=== PATIENT | male | born 1960 | race Caucasian/White ===

== ENCOUNTER → 2018-02-15 | Outpatient (CLI) | payer BC ==
--- NOTE | 2018-02-15 12:24 | MRI ---
MRI left knee without contrast INDICATION: Knee pain initial encounter twisting injury felt pop feels unstable TECHNIQUE: Noncontrast MR imaging left knee standard protocol FINDINGS: Large joint effusion with diffuse synovitis likely reactive. Extensor tendons are intact. There is cystic change in the anterior midline tibial plateau likely intraosseous ganglion/degenerative cyst. Cruciate ligaments are intact. There is a diffusely macerated tear of the medial meniscus with diffuse horizontal cleavage with maceration posterior horn and adjacent grade 4 chondral fissuring posterior aspect medial femoral condyle with subchondral edema. There is also subchondral stress reaction with edema in the medial tibial plateau. No major lateral meniscal tear Mild lateral patellar tracking and tilt with diffuse up to grade 4 chondrosis in the lateral patellar facet and lower grade chondrosis in the remainder of the patellofemoral compartment. Subchondral edema is noted with chondral delamination axial series 301 image 30 lateral facet patella. IMPRESSION: Large joint effusion with diffuse synovitis/debris Macerated medial meniscal tear most severe in the body and posterior horn with adjacent subchondral edema and grade 4 chondrosis in the medial tibiofemoral compartment No cruciate ligament disruption Intraosseous ganglion/degenerative cyst anterior midline tibial plateau Minimal degenerative change lateral meniscus Up to grade 4 chondrosis in the patella most pronounced in the lateral facet inferiorly with subchondral edema and more generalized lower grade chondrosis in the remainder of the patellofemoral compartment. Partial medial meniscal extrusion along the medial jointline on the coronal images without disruption of the collateral ligaments. Electronically signed by: Jose Pierson MD 02/15/2018 12:23 PM CDT
== END ==
LOC: MRI 10:49
PROVIDERS: ATTEND Family Medicine
DX: S83.242A Other tear of medial meniscus, current injury, left knee, initial encounter (principal); M94.8X6 Other specified disorders of cartilage, lower leg

== ENCOUNTER → 2018-02-26 | Outpatient (CLI) | payer BC | LOC: LAB.O 09:44 | PROVIDERS: ATTEND Orthopaedic Surgery | DX: Z01.818 Encounter for other preprocedural examination (principal) ==

== ENCOUNTER 2018-03-13 05:48 | Day surgery (SDC) | payer BC ==
--- NOTE | 2018-03-12 10:50 | HP ---
CHIEF COMPLAINT: Left knee pain. HISTORY OF PRESENT ILLNESS: Mr. Christine is a 58-year-old male with a history of twisting injury. He has been having difficulty with extension of the knee with occasional clicking. Because of his ongoing symptoms, he has requested operative intervention. After discussing the risks, benefits and alternatives to that, the patient has given informed consent. PAST SURGICAL HISTORY: 1. Cardiac bypass. MEDICATIONS: 1. Repatha. 2. Citalopram. 3. Metoprolol. 4. Ecotrin. 5. Fish oil. ALLERGIES: NO KNOWN DRUG ALLERGIES. CODE STATUS: Full code. IMMUNIZATIONS: Up to date. FAMILY HISTORY: None pertinent to today's complaint. SOCIAL HISTORY: The patient does not use any illicit drugs. He does smoke and drinks about a 6-pack a day. REVIEW OF SYSTEMS: Negative except as indicated in the History of Present Illness. PHYSICAL EXAMINATION: VITAL SIGNS: Blood pressure 141/89. Pulse 82. Height 6'. Weight 225 pounds. MENTAL STATUS: The patient is awake, alert, and is able to give a good history and participate in the physical. The patient is oriented to person, place and time. SKIN: Normal tone and turgor. MUSCULOSKELETAL: He is tender along the medial and posteromedial aspects of the joint-line. He has difficulty with full extension but is able to fully extend today. Flexion is to about 120 degrees. He has crepitus with flexion and extension . He has no varus/valgus or anterior/posterior laxity. There is no effusion today. IMAGING: X-rays show some arthritic changes. MRI shows tearing of the medial meniscus with some bony edema. ASSESSMENT: 1. Meniscus tear. 2. Arthritis. PLAN: At this point, we have talked about his options. Because of his MRI findings and the acute nature of these symptoms, I think a knee arthroscopy is warranted. We have discussed the risks, benefits, and alternatives to that and the patient has given informed consent. #[id number] [facility]
[2018-03-13] MEDS ORDERED: SODIUM CHL 0.9% 100ML MINI-BAG 100 ML IVPB ONE (07:59)
[2018-03-13] MEDS ORDERED: ceFAZolin SODIUM 1 GM VIAL ONE ×2 (07:59→09:06)
[2018-03-13] MEDS: LACTATED RINGERS 1,000 ML ONE ×2 (08:20→12:12)
[2018-03-13] MEDS ORDERED: BUPIVACAINE 0.25% W/EPI 50 ML VIAL INJ ONE (09:06)
[2018-03-13] MEDS ORDERED: raNITIdine HCL INJ 25 MG/ML VIAL IV ONE (10:00)
[2018-03-13] MEDS ORDERED: ePHEDrine SULF 50 MG/ML IV ONE (10:00)
[2018-03-13] MEDS ORDERED: DEXAMETHASONE INJ 10 MG/ML VIAL IV ONE (10:00)
[2018-03-13] MEDS ORDERED: PROPOFOL 200 MG/20 ML VIAL IV ONE (10:00)
[2018-03-13] MEDS ORDERED: SODIUM CHLORIDE 0.9% 50 ML VIAL INJ ONE (10:00)
[2018-03-13] MEDS ORDERED: LIDOCAINE 1% 10 ML VIAL INJ ONE (10:00)
[2018-03-13] MEDS ORDERED: METOCLOPRAMIDE HCL INJ 10 MG/2 ML VIAL IV ONE (10:00)
[2018-03-13] MEDS ORDERED: PHENYLEPHRINE INJ 1ML 10 MG/ML VIAL IV ONE (10:00)
[2018-03-13] MEDS ORDERED: MIDAZOLAM INJ 2 MG/2 ML VIAL ONE (10:11)
[2018-03-13] MEDS ORDERED: MORPHINE SULFATE INJ 10 MG/ML VIAL ONE (10:11)
[2018-03-13] MEDS ORDERED: ROCURONIUM BROMIDE 10 MG/ML VIAL ONE (10:50)
[2018-03-13] MEDS: ceFAZolin SODIUM 1 GM VIAL ONE ×2 (11:02→11:15)
[2018-03-13] MEDS: VANCOMYCIN HCL INJ 1,000 MG VIAL IVPB ONE ×2 (11:07→11:15)
[2018-03-13] MEDS ORDERED: ELECTROLYTE-A 1,000 ML IVS ONE (11:15)
[2018-03-13] MEDS ORDERED: SUGAMMADEX SODIUM 200 MG/2 ML VIAL IV ONE (11:15)
[2018-03-13] MEDS ORDERED: LEVALBUTEROL NEBS 1.25 MG/3 ML VIAL NEB ONE (11:36)
[2018-03-13 14:00] VITALS: BP 124/80; TEMP 97; O2SAT 99
--- NOTE | 2018-03-14 08:35 | OP ---
DATE OF PROCEDURE: 03/13/18 PREOPERATIVE DIAGNOSIS: 1. Meniscus tear. 2. Knee pain. POSTOPERATIVE DIAGNOSIS: 1. Medial meniscus tear. 2. Full thickness cartilaginous loss in the knee. PROCEDURE: 1. Partial meniscectomy. 2. Chondroplasty/debridement. SURGEON: Campos Ventura MD. RELOCATION COUNSELOR: Luis Shepherd CST, -C. ANESTHESIA: General anesthesia. COMPLICATIONS: None. FINDINGS: 1. Full thickness cartilaginous loss on the medial femoral condyle. 2. Large flap tear of cartilage on the medial femoral condyle. 3. Flap tear of the medial meniscus in the mid-body extending to the posterior body. 4. Normal anterior cruciate ligament, normal posterior cruciate ligament. 5. Large flap tear of cartilage on the lateral femoral condyle. 6. Grade 3 cartilaginous changes in the lateral compartment. 7. Normal lateral gutter. 8. Normal suprapatellar pouch. 9. Full thickness cartilaginous loss in the patellofemoral joint. 10. Normal medial gutter. INDICATION: Mr. Christine has a history of knee pain with associated occasional mechanical symptoms. Because of his ongoing knee pain and failure of conservative measures, he has requested operative intervention. After discussing the risks, benefits and alternatives to that, the patient has given informed consent for that. PROCEDURE: The patient was brought to the Operating Room and placed in supine position. General anesthesia was induced and the patient's leg was sterilely prepped and draped. Following prepping and draping, standard anteromedial and anterolateral portals were established. Diagnostic arthroscopy was carried out with the above findings. Following that, attention was focused on the medial compartment. Using a 3.5 mm full radius shaver, the tear in the medial meniscus was debrided and subsequently thoroughly probed. It was stable with no remaining flap tear. The cartilaginous surface on the medial femoral condyle was debrided to a stable base. Attention was focused on the lateral compartment where the lateral femoral condylar cartilage was debrided and the flap tear noted above was removed. An accessory superolateral portal was established and the patellofemoral joint was debrided. The knee was then very thoroughly irrigated and drained. Following draining of the knee, the wounds were closed with Nylon suture. Sterile dressings were placed. The patient was awoken from anesthesia and taken to Recovery. POSTOPERATIVE PLAN: The patient will be partial weightbearing until followup with us in two days. #[id number] MTDD
== END 2018-03-13 12:45 | disposition home or self-care (01) ==
LOC: AMB 05:48
PROVIDERS: ATTEND Orthopaedic Surgery
DX: M23.204 Derangement of unspecified medial meniscus due to old tear or injury, left knee (principal); I10 Essential (primary) hypertension; I25.10 Atherosclerotic heart disease of native coronary artery without angina pectoris; F17.200 Nicotine dependence, unspecified, uncomplicated; I25.2 Old myocardial infarction; Z95.1 Presence of aortocoronary bypass graft; Z79.899 Other long term (current) drug therapy
CPT/HCPCS: 01400; 29881; A4216; J0690; J1100; J2250; J2270; J2765; J2780; J3370; J3490; J7050; J7120; J7614

== ENCOUNTER → 2018-10-16 | Outpatient (CLI) | payer BC ==
--- NOTE | 2018-10-16 17:45 | CT ---
EXAM DESCRIPTION: Head: Computed Tomography. CLINICAL HISTORY: ALTERED MENTAL STATE COMPARISON: CT scan of the head without contrast 01/23/2008. Duplex ultrasound evaluation of the carotid and vertebral arteries on this visit. TECHNIQUE: Non-helical axial scans through the skull and brain, at 2.5 x 20 mm intervals, non-contrast. Coronal and sagittal 2.0 mm reconstructions. Total Exam DLP: 752.48 mGy-cm. This exam was performed according to our departmental dose-optimization program which includes automated exposure control, adjustment of the mA and/or kV according to patient size and/or use of iterative reconstruction technique; to reduce radiation dose to as low as reasonably achievable (ALARA). FINDINGS: No hemorrhage, no mass-effect, and no midline shift. Normal cruz-white matter differentiation. No abnormal radiodense material in the brain parenchyma. Vascular calcifications anterior and posterior; physiologic calcifications in the pineal gland and choroid plexus. No effacement or displacement of the ventricles, CSF spaces, or subdural spaces. Increased size of the cortical sulci in the bilateral frontal lobes compared to the prior study. No extra axial fluid collection or hemorrhage. No gross abnormalities of the bony calvarium. Included paranasal sinuses and left mastoid air cells are unremarkable. Intimal soft tissue density in the inferior right mastoid air cells. IMPRESSION: 1. No hemorrhage, no mass effect, no midline shift. No extra-axial hemorrhage. Subtle increase in cortical atrophy in the bilateral frontal lobes since the prior study. 2. CT scans are insensitive for detecting causes for cognitive and subtle mental status changes. If symptoms persist, consider NON-EMERGENT MRI scan of the brain with diffusion imaging. Also gadolinium IV contrast may be additionally helpful. Electronically signed by: Luis Gudino MD 10/16/2018 5:41 PM [facility]
--- NOTE | 2018-10-16 17:51 | US ---
EXAM DESCRIPTION: Carotid Duplex: ULTRASOUND. CLINICAL HISTORY: 58 years Male ALTERED MENTAL STATUS COMPARISON: CT scan of the head without IV contrast on this visit. TECHNIQUE: Transcutaneous scanning utilizing cruz-scale and Doppler modes to evaluate the bilateral carotid systems and vertebral arteries. Percentage of diameter of stenosis or no stenosis recorded will be based upon NASCET criteria. FINDINGS: Peak systolic/end diastolic (CM-Sec) CCA Right 83/22 Left 68/15. ICA Right proximal 134/35, mid 95/27. Left proximal 111/37, Distal 87/24. Vertebral Right 58/16 Left 61/19. ECA (PS Only) Right 162 left 142. ICA/CCA peak systolic ratio: Right 1.6 Left 1.6 ICA/CCA end diastolic ratio: Right 1.6 Left 2.5 Vertebral arteries: Antegrade flow. Comments: atherosclerotic calcification right CCA bulb. Area stenosis is 34% and diameter stenosis is the same. Spectral broadening and minimal color turbulent flow in the proximal right ICA. Atherosclerotic calcification in the bulb of the left CCA. Area stenosis is 53% and diameter stenosis 46%. Atherosclerotic calcification in the proximal left ICA. Area stenosis is 68% and diameter stenosis 49%. Color turbulent flow and spectral broadening in the proximal left ICA. IMPRESSION: 1. Doppler evaluation of the bilateral carotid systems and vertebral arteries shows no hemodynamically significant stenoses. However, stenosis in the proximal left ICA is 50-60% 2. Significant amount plaque seen in the carotid arteries bilaterally. Bilateral vertebral arteries showed antegrade-cephalad flow. Electronically signed by: Luis Gudino MD 10/16/2018 5:48 PM [facility]
== END ==
LOC: US 07:58
PROVIDERS: ATTEND Family Medicine
DX: R41.82 Altered mental status, unspecified (principal); I65.23 Occlusion and stenosis of bilateral carotid arteries

== ENCOUNTER → 2019-06-24 | Outpatient (CLI) | payer BC ==
--- NOTE | 2019-06-24 12:30 | RAD ---
EXAM DESCRIPTION: Pelvis CLINICAL HISTORY: 59 years Male, PAIN IN RIGHT HIP COMPARISON: None. TECHNIQUE: AP radiograph of the pelvis was performed. FINDINGS: The pelvic ring appears grossly intact on this single AP radiograph. No acute fracture or dislocation. Bilateral sacroiliac joints appear normal. Severe right hip osteoarthritis with [id number] appearance. Moderate to severe left hip osteoarthritis. The visualized lumbo-sacral spine demonstrates mild degenerative changes. IMPRESSION: Single AP radiograph of the pelvis demonstrates grossly intact pelvic ring. Severe right and moderate to severe left hip osteoarthritis. Electronically signed by: Dulce Nguyen MD 06/24/2019 12:29 PM [facility]
== END ==
LOC: RAD 10:55
PROVIDERS: ATTEND Orthopaedic Surgery
DX: M16.0 Bilateral primary osteoarthritis of hip (principal)

== ENCOUNTER → 2019-07-08 | Outpatient (CLI) | payer BC | END | disposition home or self-care (01) | LOC: LAB.O 09:50 | PROVIDERS: ATTEND Orthopaedic Surgery | DX: Z11.2 Encounter for screening for other bacterial diseases (principal) ==

== ENCOUNTER 2019-08-07 05:41 | Inpatient (IN) | payer BC ==
[2019-08-07] MEDS ORDERED: LACTATED RINGERS 1,000 ML ONE ×2 (05:43→10:56)
[2019-08-07] MEDS ORDERED: TRANEXAMIC ACID 1,000 MG/10 ML VIAL ONE ×2 (05:43→05:54)
[2019-08-07] MEDS ORDERED: VANCOMYCIN HCL INJ 1,000 MG VIAL IVPB ONE ×3 (05:44→19:40)
[2019-08-07] MEDS ORDERED: ceFAZolin SODIUM 1 GM VIAL ONE ×3 (05:44→19:41)
[2019-08-07] MEDS ORDERED: SODIUM CHLORIDE 0.9% 250ML 250 ML ONE ×3 (05:45→19:40)
[2019-08-07] MEDS ORDERED: SODIUM CHL 0.9% 100ML MINI-BAG 100 ML IVPB ONE (05:45)
[2019-08-07] MEDS ORDERED: SODIUM CHLORIDE 0.9% 100ML 100 ML IVPB ONE (05:55)
[2019-08-07] MEDS ORDERED: KETAMINE HCL 100 MG/ML VIAL ONE (06:29)
[2019-08-07] MEDS ORDERED: HYDROmorphone HCL INJ 2 MG/ML VIAL ONE (06:29)
[2019-08-07] MEDS ORDERED: ROCURONIUM BROMIDE 10 MG/ML VIAL ONE ×2 (06:30→08:12)
[2019-08-07] MEDS ORDERED: BUPIVACAINE 0.5% 30 ML VIAL INJ ONE (06:30)
[2019-08-07] MEDS ORDERED: MIDAZOLAM INJ 5 MG/5 ML VIAL ONE (06:30)
[2019-08-07] MEDS ORDERED: BUPIVACAINE LIPOSOME 13.3 MG/ML VIAL INJ ONE (06:31)
[2019-08-07] MEDS: ceFAZolin SODIUM 1 GM VIAL ONE ×3 (07:50→09:06)
[2019-08-07] MEDS: VANCOMYCIN HCL INJ 1,000 MG VIAL IVPB ONE ×2 (07:59→09:06)
[2019-08-07] MEDS ORDERED: SUGAMMADEX SODIUM 200 MG/2 ML VIAL IV ONE (08:42)
[2019-08-07] MEDS ORDERED: ELECTROLYTE-A 1,000 ML IVS ONE (08:42)
[2019-08-07] MEDS ORDERED: ALUMINUM & MAGNESIUM HYDROXIDE 30 ML UD PO PRN (09:50)
[2019-08-07] MEDS ORDERED: MAGNESIUM HYDROXIDE 30 ML UD PO PRN (09:50)
[2019-08-07] MEDS ORDERED: HYDROcodone 5MG/APAP 325MG 1 EA TAB PO PRN (09:50)
[2019-08-07] MEDS ORDERED: ACETAMINOPHEN 325 MG TAB PO PRN (09:50)
[2019-08-07] MEDS ORDERED: ZOLPIDEM TARTRATE 5 MG TAB PO PRN (09:50)
[2019-08-07] MEDS ORDERED: MORPHINE SULFATE INJ 10 MG/ML VIAL IM PRN (09:50)
[2019-08-07] MEDS ORDERED: DEX 5% W/NACL 0.45% 1000ML 1,000 ML IVS PRN (09:50)
[2019-08-07] MEDS ORDERED: MORPHINE SULFATE INJ 10 MG/ML VIAL IV PRN (09:50)
[2019-08-07] MEDS ORDERED: NALOXONE HCL INJ 0.4 MG/ML VIAL IV PRN (09:50)
[2019-08-07] MEDS ORDERED: ACETAMINOPHEN 500 MG TAB PO PRN (09:50)
[2019-08-07] MEDS ORDERED: CYCLOBENZAPRINE HCL 10 MG TAB PO PRN (09:50)
[2019-08-07] MEDS ORDERED: BISACODYL SUPPOSITORY 10 MG PR PRN (09:50)
[2019-08-07] MEDS ORDERED: ONDANSETRON INJ 4 MG/2 ML VIAL IV PRN (09:50)
[2019-08-07] MEDS ORDERED: TEMAZEPAM 15 MG CAP PO PRN (09:50)
[2019-08-07] MEDS ORDERED: TRANEXAMIC ACID INJ 1,000 MG in SODIUM CHLORIDE 0.9% 100ML 100 ML IVPB ONE (09:50)
[2019-08-07] MEDS ORDERED: PROMETHAZINE HCL INJ 25 MG in SODIUM CHLORIDE 0.9% 50ML 50 ML IVPB PRN (09:50)
[2019-08-07] MEDS ORDERED: BENZOCAINE-MENTH LOZ (CEPACOL) 1 EA LOZ MT PRN (09:50)
[2019-08-07] MEDS ORDERED: SODIUM CHLORIDE 0.9% (FLUSH) 10 ML SYG IV PRN (09:50)
[2019-08-07] MEDS ORDERED: PROMETHAZINE HCL INJ 12.5 MG in SODIUM CHLORIDE 0.9% 50ML 50 ML IVPB PRN (09:50)
[2019-08-07] MEDS ORDERED: PHENYLEPHRINE INJ 1ML 10 MG/ML VIAL IV ONE (10:00)
[2019-08-07] MEDS ORDERED: LIDOCAINE 1% 10 ML VIAL INJ ONE (10:00)
[2019-08-07] MEDS ORDERED: MORPHINE PCA 1 MG/ML 100 ML BAG IVPB SCH (10:00)
[2019-08-07] MEDS ORDERED: IV SET AND CAP CHANGE INJ INJ SCH (10:00)
[2019-08-07] MEDS ORDERED: PROPOFOL 200 MG/20 ML VIAL IV ONE (10:00)
[2019-08-07] MEDS ORDERED: DEXAMETHASONE INJ 10 MG/ML VIAL IV ONE (10:00)
[2019-08-07] MEDS ORDERED: SODIUM CHLORIDE 0.9% 50 ML VIAL INJ ONE (10:00)
[2019-08-07] MEDS ORDERED: raNITIdine HCL INJ 25 MG/ML VIAL IV ONE (10:00)
[2019-08-07] MEDS ORDERED: ePHEDrine SULF 50 MG/ML IV ONE (10:00)
[2019-08-07] MEDS ORDERED: SODIUM CHLORIDE 0.9% 1000ML 500 ML IVS PRN (11:30)
[2019-08-07] MEDS ORDERED: SODIUM CHLORIDE 0.9% 500ML 500 ML ONE (11:41)
[2019-08-07] MEDS ORDERED: SODIUM CHLORIDE 0.9% 1000ML 1,000 ML IVS ONE (15:02)
[2019-08-07] MEDS ORDERED: ALBUMIN 25 GM in PREMIX BOTTLE 2 BOTTLE IVPB ONE (15:10)
[2019-08-07] MEDS ORDERED: ALBUMIN 50 ML IVPB ONE ×2 (15:14→15:16)
[2019-08-07] MEDS ORDERED: SODIUM CHL 0.9% 50ML MIN-BAG+ 50 ML IVPB ONE ×2 (17:50→19:40)
[2019-08-07] MEDS: CELECOXIB 100 MG CAP PO SCH (17:55)
[2019-08-07] MEDS: ceFAZolin SODIUM 2 GM in SODIUM CHL 0.9% 50ML MIN-BAG+ 50 ML IVPB SCH (17:55)
[2019-08-07] MEDS ORDERED: FUROSEMIDE INJ 40 MG/4 ML VIAL IV ONE (18:00)
[2019-08-07] MEDS: VANCOMYCIN HCL INJ 1,000 MG in SODIUM CHLORIDE 0.9% 250ML 250 ML IVPB SCH (18:31)
[2019-08-07] MEDS ORDERED: ENOXAPARIN SODIUM 30 MG/0.3 ML SYG SUBCU ONE (19:40)
[2019-08-07] MEDS: DOCUSATE CALCIUM 240 MG CAP PO SCH (20:37)
[2019-08-07] MEDS ORDERED: GLUCAGON INJ 1 MG VIAL SUBCU PRN (22:03)
[2019-08-07] MEDS ORDERED: DEXTROSE 50% 25 GM/50 ML SYG IV PRN (22:03)
[2019-08-07] MEDS: ENOXAPARIN SODIUM 30 MG/0.3 ML SYG SUBCU SCH (22:32)
--- NOTE | 2019-08-07 23:21 | RAD ---
EXAM DESCRIPTION: Hip,Right 2 Views (accession [id number]), Pelvis (accession [id number]) CLINICAL HISTORY: 59 years Male, post op COMPARISON: Pelvic radiograph 06/24/2019 TECHNIQUE: 2 view radiograph of the right hip and single view radiograph of the pelvis. IMPRESSION: Status post total right hip arthroplasty. Moderate arthrosis of the left hip. Imaged hardware appears normal in alignment and intact without fracture. No periprosthetic lucency is present to indicate hardware loosening. Postsurgical changes noted in the overlying soft tissues. Electronically signed by: Fuentes Zacarias MD 08/07/2019 11:20 PM [facility]
--- NOTE | 2019-08-07 23:21 | RAD ---
EXAM DESCRIPTION: Hip,Right 2 Views (accession [id number]), Pelvis (accession [id number]) CLINICAL HISTORY: 59 years Male, post op COMPARISON: Pelvic radiograph 06/24/2019 TECHNIQUE: 2 view radiograph of the right hip and single view radiograph of the pelvis. IMPRESSION: Status post total right hip arthroplasty. Moderate arthrosis of the left hip. Imaged hardware appears normal in alignment and intact without fracture. No periprosthetic lucency is present to indicate hardware loosening. Postsurgical changes noted in the overlying soft tissues. Electronically signed by: Fuentes Zacarias MD 08/07/2019 11:20 PM [facility]
[2019-08-08] MEDS: ceFAZolin SODIUM 2 GM in SODIUM CHL 0.9% 50ML MIN-BAG+ 50 ML IVPB SCH ×2 (00:14→08:58)
[2019-08-08] MEDS: VANCOMYCIN HCL INJ 1,000 MG in SODIUM CHLORIDE 0.9% 250ML 250 ML IVPB SCH (06:20)
[2019-08-08] MEDS ORDERED: INSULIN LISPRO 100 UNITS/ML PEN SUBCU SCH (07:00)
[2019-08-08] MEDS ORDERED: SODIUM CHL 0.9% 50ML MIN-BAG+ 50 ML IVPB ONE (07:19)
[2019-08-08] MEDS ORDERED: ceFAZolin SODIUM 1 GM VIAL ONE (07:20)
[2019-08-08] MEDS: CELECOXIB 100 MG CAP PO SCH ×2 (07:43→16:39)
--- NOTE | 2019-08-08 08:21 | CONS ---
SUPERVISING PHYSICIAN: John Lopez MD CHIEF COMPLAINT: Right hip pain. HISTORY OF PRESENT ILLNESS: This is a 59-year-old male patient with a history of right hip pain. He has requested Dr. Campos Ventura, orthopedic surgeon, for operative intervention. The patient was admitted today for right total hip arthroplasty that was performed by Dr. Campos Ventura, orthopedic surgeon. He had no problems intraoperatively. He was admitted to the Floor postoperatively in stable condition. PAST MEDICAL HISTORY: 1. Coronary artery disease. 2. Myocardial infarction with stent placement. 3. Hyperlipidemia. 4. Hypertension. 5. Depression. 6. History of smoking. PAST SURGICAL HISTORY: 1. Cardiac bypass graft surgery. 2. Stent placement to the right coronary artery. OUTPATIENT MEDICATIONS: 1. [place] 3 fatty acids. 2. Aspirin. 3. Citalopram. 4. Metoprolol. ALLERGIES: NO KNOWN DRUG ALLERGIES SOCIAL HISTORY: He lives in [place]. He has a past history of smoking and he continues to smoke 2 cigars daily. He drinks alcohol on a social basis. He denies any illegal drugs. REVIEW OF SYSTEMS: Negative except as per history of present illness. PHYSICAL EXAMINATION: VITAL SIGNS: Temperature 98. Heart rate 86. Blood pressure 111/73. Respiratory rate 20. O2 saturation 98% on room air. GENERAL: This is a 59-year-old male patient lying in his hospital bed. He is in no acute distress. HEENT: Normocephalic, atraumatic. Pupils are equal and reactive. Oropharynx is clear. NECK: Supple without mass. RESPIRATORY: Essentially clear to auscultation bilaterally. CHEST: There is equal rise and fall of the chest with inspiration and expiration. CARDIOVASCULAR: Regular rate and rhythm. GASTROINTESTINAL: Abdomen is soft, nondistended, nontender. Bowel sounds are positive. EXTREMITIES: No cyanosis, clubbing or edema. Bilateral pedal pulses are palpable at +2. There is a dressing to his right lateral hip that is dry and intact. NEUROLOGIC: Awake, alert and oriented times three. Cranial nerves II-XII are grossly intact. SKIN: Somewhat clammy. LABORATORY: Electrolytes are basically within normal limits. Toxicology is negative. Radiology reports are per the EMR. IMPRESSION: 1. Osteoarthritis of the right hip status post right total hip arthroplasty performed by Dr. Campos Ventura, orthopedic surgeon, postoperative day 0. 2. Elevated hemoglobin and hematocrit. 3. Hyperlipidemia. 4. Hypertension. 5. Depression. PLAN: We will continue present supportive care. His home medications have been restarted. He will start his physical therapy tomorrow for strengthening and conditioning. Orthopedic issues will be per Dr. Campos Ventrua, orthopedic surgeon. His initial blood pressures were somewhat low postoperatively. Once he got to the Floor, he was diaphoretic, but he had no complaints of chest pain, shortness of breath. I have given him a liter of fluids as well as some albumin. He may need some Lasix in the morning, but we will reassess his blood pressure at that time. His urine output is good. We will continue to monitor the patient closely and follow as needed. #[id number] MTDD
--- NOTE | 2019-08-08 08:36 | OP ---
DATE OF PROCEDURE: 08/07/19 PREOPERATIVE DIAGNOSIS: 1. Right hip osteoarthritis. POSTOPERATIVE DIAGNOSIS: 1. Right hip osteoarthritis. PROCEDURE: 1. Right total hip arthroplasty. SURGEON: Campos Ventura MD. COMPOSITE ASSEMBLER: Luis Shepherd CST, SA-C. ANESTHESIA: General anesthesia. COMPLICATIONS: None. FINDINGS: Severe arthritis. INDICATION: Mr. Christine has a history of severe pain which has been causing difficulty with his daily activities. He has requested operative intervention secondary to failure of conservative measures. After discussing the risks, benefits and alternatives to that, the patient has given informed consent for total hip arthroplasty. PROCEDURE: The patient was brought to the Operating Room and placed in supine position. General anesthesia was induced and the patient was placed into the lateral decubitus position. The leg and hemipelvis were then sterilely prepped and draped. Following prepping and draping, an incision was made centered on the greater trochanter and extending both proximally and distally. A standard lateral approach was performed with elevation of the anterior one-third of the abductor musculature. A capsulotomy was performed. The hip was dislocated. The primary femoral neck cut was made. The acetabulum was exposed. Following exposure of the acetabulum, the acetabular labrum and intervening soft tissue were removed. Sequential reaming was undertaken and a size 53 reamer was used to accommodate a size 54 cup. A trial cup was placed. It was fully seated. The final cup was impacted and three screws were used to augment the fixation. A liner was placed and attention was then focused on the femur. The femur was broached sequentially up to a size 7. A neutral head with a +5 neck was placed and the hip was relocated. Following reduction, the hip was taken through a range of motion and there was no evidence of impingement. There was no evidence of dislocation and the leg lengths appeared from a clinical standpoint to be equivalent. The hip was then dislocated and the wound was thoroughly irrigated. The final components were impacted. Following that, the hip was again reduced and again taken through a range of motion. Again, there was no laxity and there was no impending dislocation or impingement. The wound was again thoroughly irrigated and the abductor musculature was reapproximated. Following that, the iliotibial band was closed followed by closure of the skin with a combination of running and interrupted subcuticular stitches. Sterile dressings were placed. The patient was awoken from anesthesia and taken to Recovery. POSTOPERATIVE PLAN: The patient will be partial weightbearing on postoperative day 1. COMPONENTS: [place] Accolade II stem, size 7, and size 54 Tritanium acetabular cup. #[id number] MTDD
[2019-08-08] MEDS: ASPIRIN (ENTERIC COATED) 81 MG TAB PO SCH (09:15)
[2019-08-08] MEDS: CITALOPRAM HBR 20 MG TAB PO SCH (09:15)
[2019-08-08] MEDS: MAGNESIUM OXIDE 400 MG TAB PO SCH (09:15)
[2019-08-08] MEDS: METOPROLOL SUCCINATE XL 25 MG TAB PO SCH (09:57)
[2019-08-08] MEDS: ENOXAPARIN SODIUM 30 MG/0.3 ML SYG SUBCU SCH ×2 (10:05→22:49)
[2019-08-08] MEDS: DOCUSATE CALCIUM 240 MG CAP PO SCH (20:00)
[2019-08-09] MEDS: HYDROcodone 10MG/APAP 325MG 1 EA TAB PO PRN ×2 (06:08→12:44)
[2019-08-09] MEDS ORDERED: SODIUM CHLORIDE 0.9% (FLUSH) 10 ML SYG IV SCH (09:00)
--- NOTE | 2019-08-09 09:07 | PN ---
DATE: 08-08-19 SUPERVISING PHYSICIAN: Mervin Lopez MD SUBJECTIVE: The patient is sitting up in bed. He feels much better today. He had no problems with his physical therapy. He has had no more complaints of diaphoresis and his vital signs have been stable. OBJECTIVE: Temperature 98.1, heart rate 74, blood pressure 124/78, respiratory rate 60, oxygen saturation 94% on room air. RESPIRATORY: Essentially clear to auscultation bilaterally. CARDIAC: Regular rate and rhythm. GI: Abdomen soft, non-tender, nondistended. Bowel sounds are positive. EXTREMITIES: No cyanosis, clubbing, or edema. He has a dressing to his right lateral hip that is dry and intact. Bilateral pedal pulses are palpable +2. NEURO: He is awake, alert, and oriented x3. LABORATORY: Hemoglobin 15.2, hematocrit 44.6. All other labs and films have been reviewed via the EMR. IMPRESSION: 1. Osteoarthritis of the right hip status post right total hip arthroplasty performed by Dr. Campos Ventura, orthopedic surgeon, postoperative day #1. 2. Elevated hemoglobin and hematocrit. 3. Hyperlipidemia. 4. Hypertension. 5. Depression. PLAN: We will continue present supportive care. Orthopedic issues will be per Dr. Campos Ventura, orthopedic surgeon. We will continue with physical therapy for strengthening and conditioning. After discharge, he will go to [facility] for physical therapy. It is recommended that he get a phlebotomy after his discharge if he continues to have elevated hemoglobin and hematocrit and to have a workup on that at some point. Otherwise, we will continue to monitor closely and follow as needed. #[id number] [facility]
[2019-08-09] MEDS: MAGNESIUM OXIDE 400 MG TAB PO SCH (09:12)
[2019-08-09] MEDS: CITALOPRAM HBR 20 MG TAB PO SCH (09:12)
[2019-08-09] MEDS: METOPROLOL SUCCINATE XL 25 MG TAB PO SCH (09:12)
[2019-08-09] MEDS: CELECOXIB 100 MG CAP PO SCH (09:12)
[2019-08-09] MEDS: ASPIRIN (ENTERIC COATED) 81 MG TAB PO SCH (09:12)
[2019-08-09 09:19] VITALS: O2SAT 99
[2019-08-09] MEDS ORDERED: NITROGLYCERIN 0.4 MG 25 EA TAB SL PRN (11:32)
[2019-08-09] MEDS: ENOXAPARIN SODIUM 30 MG/0.3 ML SYG SUBCU SCH (11:48)
[2019-08-09] MEDS ORDERED: NITROGLYCERIN 0.4 MG/HR PATCH TOP ONE ×2 (13:01→13:03)
[2019-08-09 16:18] VITALS: BP 145/79; TEMP 98.5
[2019-08-10] MEDS ORDERED: MAGNESIUM HYDROXIDE 30 ML UD PO ONE (21:00)
[2019-08-10] MEDS ORDERED: BISACODYL SUPPOSITORY 10 MG PR ONE (21:00)
--- NOTE | 2019-08-11 10:08 | PN ---
DATE: 08/10/19 SUBJECTIVE: I stopped by to see Luis twice today. My earlier visits, subjectively Luis was doing really well. He had no significant complaints and had been up walking. His wound was clean, no signs or symptoms of infection. On the second visit in the afternoon, as soon as I entered the room Luis was complaining of chest pain. Luis has a history of cardiac disease and therefore I immediately ordered sublingual Nitroglycerin. I additionally ordered an EKG as well and his cardiac enzymes. The Nitroglycerin seemed to help his chest pain and the EKG seemed to essentially unremarkable when compared to his previous. After that, plans were made for him to be discharged if all his enzymes were within normal limits. Initial enzymes indicated that he had had a cardiac event and Bob Torres pursued to get in touch with Luis's lead medical technologist. A transfer to [facility] was arranged. At the time, Luis was stable. He has not had any chest pain. Blood pressure was approximately 150/85 and his heart rate was 80. He is not diaphoretic and he was neurologically and mentally stable. His wounds remain clean and there were no signs or symptoms of infection and no drainage. There is not significant hematoma. Luis is going to be transferred for definitive care on his cardiac issues. Once he is cleared, Luis will resume his therapy activities. He will maintain his prophylaxis. His has been given my cell phone so she can contact me if they need anything. Otherwise, they will followup on their scheduled basis. #[id number] MTDD
--- NOTE | 2019-08-11 10:12 | PN ---
DATE: 08/08/19 SUBJECTIVE: Luis is doing really well and is currently pain free. OBJECTIVE: Afebrile. Vital signs stable. Dressing is clean, dry and intact. ASSESSMENT: Status post total knee arthroplasty. PLAN: The plan is to get out of bed today with partial weightbearing. #[id number] [facility]
--- NOTE | 2019-08-19 10:56 | DS ---
SUPERVISING PHYSICIAN: John Lopez MD ADMISSION DIAGNOSIS: 1. Osteoarthritis of the right hip status post right total hip arthroplasty performed by Dr. Campos Ventura, orthopedic surgeon, postoperative day 0. 2. Elevated hemoglobin and hematocrit. 3. Hyperlipidemia. 4. Hypertension. 5. Depression. DISCHARGE DIAGNOSIS: 1. Postoperative non-ST elevation myocardial infarction on postoperative day #2. 2. Osteoarthritis of the right hip status post right total hip arthroplasty performed by Dr. Campos Ventura, orthopedic surgeon, postoperative day #2. 3. Elevated hemoglobin and hematocrit. 4. Hyperlipidemia. 5. Hypertension. 6. Depression. REASON FOR HOSPITALIZATION: This is a 59-year-old male patient with a history of right hip pain. He has requested Dr. Campos Ventura, orthopedic surgeon, for operative intervention. The patient was admitted today for right total hip arthroplasty that was performed by Dr. Campos Ventura, orthopedic surgeon. He had no problems intraoperatively. He was admitted to the Floor postoperatively in stable condition. LABORATORY: Postoperative hemoglobin 15.2, hematocrit 44.6. Discharge chemistry showed normal electrolytes. Liver functions all within normal limits. Troponin elevated at 0.96. Urinalysis showed small bilirubin, 4.0 urobilinogen, otherwise within normal limits. Toxicology screen was negative. RADIOLOGY: See preoperative notes. EKG postoperatively showed a sinus rhythm with no ST or T-wave changes noted. HOSPITAL COURSE: Mr. Christine was admitted on 08/07/19 for elective right total hip arthroplasty. The patient did well postoperatively. He did not have any intraoperative complications. Postoperatively, he developed some chest pains just prior to discharge and on workup was found to have sustained a non-STEMI. Transfer was secured with Cardiology at [facility]. He was in stable condition at discharge. He was given nitro 1.4 tablet and started on a nitro patch and was pain-free on discharge. His vital signs were stable with a blood pressure 145/79, heart rate 78, saturation 99% on room air. He had no complications in regards to his hip. He did well with his physical therapy. He was transferred to [facility] for higher level of care. DISCHARGE PLAN: Mr. Christine was discharged on 08/09/19 and transferred to [facility] for cardiology specialty after sustaining a non- STEMI postoperatively. Diet was as instructed on discharge. Activity as per physical therapy. He is to followup with Dr. Ventura on discharge as directed. He was provided postoperative management prescription by Dr. Ventura as well as Xarelto 10 mg daily for a total of 8 days after discharge. He was transferred via ground ambulance to [facility]. CONDITION ON DISCHARGE: Stable. #[id number]
== END 2019-08-09 16:15 | disposition short-term general hospital (02) | DRG 469 ==
LOC: AMB 05:41 → MS 11:19
PROVIDERS: ADMIT Orthopaedic Surgery; ATTEND Orthopaedic Surgery
PROC: 0SR904A Replacement of Right Hip Joint with Ceramic on Polyethylene Synthetic Substitute, Uncemented, Open Approach (ICD-10-PCS; principal; 2019-08-07 07:02)
DX: M16.11 Unilateral primary osteoarthritis, right hip (principal); I21.4 Non-ST elevation (NSTEMI) myocardial infarction; D58.2 Other hemoglobinopathies; I25.10 Atherosclerotic heart disease of native coronary artery without angina pectoris; I25.2 Old myocardial infarction; E78.5 Hyperlipidemia, unspecified; I10 Essential (primary) hypertension; F32.9 Major depressive disorder, single episode, unspecified; Z95.5 Presence of coronary angioplasty implant and graft; Z87.891 Personal history of nicotine dependence; Z79.82 Long term (current) use of aspirin; Z79.899 Other long term (current) drug therapy